=== PATIENT | female | born 1995 | race Caucasian/White ===

== ENCOUNTER 2019-03-12 09:07 | Emergency (ER) | payer BC ==
[~2019-03-12] VITALS: Ht 154.9 cm; Wt 63.0 kg
[2019-03-12] MEDS ORDERED: BENADRYL25 MG PO (09:19)
[2019-03-12] MEDS ORDERED: TRIAMCINOLONE A15 G3 TOP (09:49)
[2019-03-12] MEDS ORDERED: PREDNISONE20 MG PO (09:49)
== END 2019-03-12 10:02 | disposition home or self-care (01) ==
LOC: ED 09:07
DX: L25.9 Unspecified contact dermatitis, unspecified cause (principal); Z79.899 Other long term (current) drug therapy
CPT/HCPCS: 99283

== ENCOUNTER 2019-05-24 20:56 | Emergency (ER) | payer OTHER ==
[~2019-05-24] VITALS: Ht 154.9 cm; Wt 67.1 kg
[~2019-05-24 20:56] MED LIST: BENADRYL25 MG PO; PREDNISONE20 MG PO; TRIAMCINOLONE A15 G3 TOP
== END 2019-05-24 23:22 | disposition home or self-care (01) ==
LOC: ED 20:56
DX: R11.2 Nausea with vomiting, unspecified (principal); R19.7 Diarrhea, unspecified
CPT/HCPCS: 80053; 81001; 83690; 84703; 85025; 99284; J7030

== ENCOUNTER 2019-07-02 20:55 | Emergency (ER) | payer OTHER ==
[~2019-07-02] VITALS: Ht 154.9 cm; Wt 66.2 kg
[2019-07-02] MEDS ORDERED: PENICILLIN V P500 MG PO (22:21)
== END 2019-07-02 22:29 | disposition home or self-care (01) ==
LOC: ED 20:55
DX: K02.9 Dental caries, unspecified (principal)
CPT/HCPCS: 99282

== ENCOUNTER 2019-09-13 10:50 | Day surgery (SDC) | payer OTHER ==
[~2019-09-13] VITALS: Ht 154.9 cm; Wt 64.0 kg
[~2019-09-13 10:50] MED LIST changes: +PENICILLIN V P500 MG PO
--- NOTE | 2019-09-13 13:52 | NUR ---
09/13/19 1352 Sheets,Tamara 1343 PT ARRIVED TO PACU ON 10L VIA MASK, PT WAKES TO VERBAL STIMULI AND IS REORIENTED TO PACU, RESP EVEN AND UNLABORED. VSS. 1346 O2 REMVOED. PT REPORTS PAIN 4/10 AND TOLERBALE AT THIS TIME. 1351 PT BRACING ABD WITH PILLOW DUE TO RN EDUCATION, PT RESTING IN BED AND REPORTS PAIN IS SLIGHTLY WORSE.
--- NOTE | 2019-09-13 14:23 | NUR ---
REQUESTED CRACKERS AND GIVEN WATER. SMILING AND REPORTS PAIN /10.
[2019-09-13] MEDS ORDERED: NORCO 5-325 TA1 EACH PO (14:54)
--- NOTE | 2019-09-13 15:33 | NUR ---
1515 PT C/O PAIN 910 AFTER WAKING UP, TEARFUL. CALLED DR DO FOR MEDICINE ORDERS. DILAUDID GIVEN.
--- NOTE | 2019-09-13 15:34 | NUR ---
1534 REPORTS PAIN IMPROVED WANTS TO WAIT BEFORE ANY MORE PAIN MED.
--- NOTE | 2019-09-13 16:31 | NUR ---
DRESSED READY TO GO. CALLED SISTER WHO WENT TO [place] IS TO RETURN TO TAKE HER HOME. DCD INSTRUCTIONS GIVEN NO QUESTIONS.
--- NOTE | 2019-09-13 17:07 | NUR ---
1650 FAMILY HERE TO TAKE PT HOME. HAS DECLINED PO PAIN MEDICINE. AMB TO BR VOIDS QS. DENIES NAUSEA. HAS TAKEN WATER 300MLS AND ATE CRACKERS.
[2019-09-14] MEDS ORDERED: ZOFRAN4 MG PO (00:49)
--- NOTE | 2019-09-14 06:29 | OR ---
[facility] [address], [place] [address] Signed DATE OF OPERATION: 09/13/2019 SURGEON: Sonja Porter MD PREOPERATIVE DIAGNOSIS: Cholelithiasis with cholecystitis. POSTOPERATIVE DIAGNOSIS: Cholelithiasis with cholecystitis. PROCEDURE PERFORMED: Laparoscopic cholecystectomy with intraoperative cholangiogram. ESTIMATED BLOOD LOSS: None. INDICATIONS: Adrienne is a 23-year-old young lady, who had come to the office with her sister. I helped her sister recently with her gallbladder surgery. She was having trouble during the . Once the baby was born, we had taken her for her gallbladder surgery. Adrienne recognized her symptoms for the same as her sister's. She has been having right upper quadrant abdominal pain radiating through to her back. It has been over the last 5 months or so. She has been anorexic and losing weight. She went from 160 pounds down to 140 pounds. She said when she eats it makes it worse. She had been to her primary care provider. An ultrasound showed a 2.5 cm stone in her gallbladder. The gallbladder wall was borderline in thickness. The common bile duct was unremarkable. She had been asked to see me with respect to the above. I met with Adrienne and her sister in the office. I gave them a [employer] brochure on the gallbladder. We went through it page by page. She understands the location and function of the gallbladder. We discussed laparoscopic versus open cholecystectomy. She understands there is risk including, but not limited to bleeding, infection, scarring, change in contour of the skin, damage to bowel, damage to main bile duct, incisional hernias, and other unforeseen comorbidities. She had expressed understanding and wished to proceed. DESCRIPTION OF PROCEDURE: I met with Adrienne and her mom in our preop area. After answering the questions, we took Adrienne into the operating room. She was placed in the supine position under general endotracheal tube anesthesia. She was given preoperative antibiotics along with subcutaneous heparin. SCDs were utilized. Her preoperative beta-hCG was negative. She was then prepped and draped in the usual sterile fashion. All trocars were placed in Electronically Signed By: SONJA PORTER MD 09/14/19 0629 PATIENT NAME: ADRIENNE PERRY OPERATIVE REPORT DATE OF : [birth year] REPORT #: [id number] PHYSICIAN: SONJA PORTER MD PCP: UMBERTO BACON PA-C REPORT IS CONFIDENTIAL AND NOT TO BE RELEASED WITHOUT AUTHORIZATION [facility] [address], [place] [address] Signed her usual positions under direct visualization of camera without difficulty. The gallbladder was grasped and elevated in the right upper quadrant. We took pictures throughout for photodocumentation. The triangle of Calot was dissected free and we placed a clip across the cystic artery and it was divided. The intraoperative cholangiocatheter was inserted into the cystic duct and intraoperative cholangiogram was then performed. The intraoperative cholangiogram was unremarkable. There was no filling defects and the contrast flowed readily into the duodenum. We secured the cystic duct stump with a PDS Endoloop and a single clip was placed on the cystic duct stump to fifi its location. After this, the gallbladder was removed from the gallbladder fossa with the help of the cautery and placed into an EndoCatch bag. We used our laparoscopic suturing device to pass 0 Vicryl suture on either side of the fascia of the subxiphoid trocar site. After this, all the gas was allowed to escape and all the trocars removed along with the gallbladder. The gallbladder was opened on the back table for photodocumentation by our circulating nurse. We closed the fascia of the subxiphoid and the supraumbilical trocar site with interrupted 0 Vicryl sutures. Local anesthetic was injected in all trocar sites. Each trocar site was irrigated and suctioned out until clear. The skin and dermis of each trocar site were closed with interrupted 3-0 subcuticular Monocryl sutures. Steri-Strips were applied and over this dry gauze and tape were applied. Adrienne was then awakened from anesthesia, extubated in the OR, and taken to recovery room in stable condition. Sonja Porter MD ALB/MODL /[id number] cc: Umberto Porter MD Copies: SONJA PORTER MD ~ Electronically Signed By: SONJA PORTER MD 09/14/19 0629 PATIENT NAME: ADRIENNE PERRY OPERATIVE REPORT DATE OF : [birth year] REPORT #: [id number] PHYSICIAN: SONJA PORTER MD PCP: UMBERTO BACON PA-C REPORT IS CONFIDENTIAL AND NOT TO BE RELEASED WITHOUT AUTHORIZATION
--- NOTE | 2019-09-14 11:10 | PATH ---
[facility] [address] [facility] [place], [place] [address] Signed SPECIMEN(S): A GALLBLADDER AND CONTENTS SPECIMEN SOURCE: A. GALLBLADDER AND CONTENTS CLINICAL HISTORY: Symptomatic cholecystitis (acute and chronic) FINAL PATHOLOGIC DIAGNOSIS: Gallbladder, cholecystectomy: - Chronic cholecystitis with cholesterolosis. - Cholelithiasis. NAL:cml:C2NR MICROSCOPIC EXAMINATION: Histologic sections of all submitted blocks are examined by light microscopy. These findings, together with the gross examination, support the pathologic diagnosis. GROSS DESCRIPTION: The specimen, labeled "CP, gallbladder," is received in formalin and consists of Specimen: Previously opened gallbladder. Dimensions: 7.5 cm in length and 3.0 cm inner circumference. Serosa: Violaceous and smooth. Cystic Duct: Cannot be determined. Calculi: One yellow-ramsay gallstone within the container that measures 2.1 cm in greatest dimension. Mucosa: Dark red and velvety. Wall thickness: 0.7 cm. Lymph node: No pericystic lymph nodes are grossly identified. Additional: None. Director Private sections are submitted in cassette (A1). JS (under the direct supervision of a pathologist) The Gross Description was prepared using a voice recognition system. The report was reviewed for accuracy; however, sound-alike word errors, addition and/or deletions may occur. If there is any question about this report, please contact Client Services. PERFORMING LABORATORY: The technical component was performed by [employer], Leah [place] Josh, PATIENT NAME: ADRIENNE PERRY PATHOLOGY DATE OF : [birth year] REPORT #: [id number] PHYSICIAN: CRISTIAN TREVIZO PCP: UMBERTO BACON PA-C REPORT IS CONFIDENTIAL AND NOT TO BE RELEASED WITHOUT AUTHORIZATION [facility] [address], [place] [address] [place] [address] (Acoustic Sensor Operator: Rachana Stoeks MD; CLIA# [id number]). Professional interpretation was performed by [employer] [facility], [address] [address] (CLIA# [id number]). Diagnostician: Zakia Vicente MD Pathologist Electronically Signed 09/14/2019 Copies: ~ PATIENT NAME: ADRIENNE PERRY PATHOLOGY DATE OF : [birth year] REPORT #: [id number] PHYSICIAN: CRISTIAN TREVIZO PCP: UMBERTO BACON PA-C REPORT IS CONFIDENTIAL AND NOT TO BE RELEASED WITHOUT AUTHORIZATION
== END 2019-09-13 16:50 | disposition home or self-care (01) ==
LOC: DS 10:50
PROVIDERS: Colon & Rectal Surgery
PROC: BF13YZZ Fluoroscopy of Gallbladder and Bile Ducts using Other Contrast (ICD-10-PCS; 2019-09-13)
PROC: 0FT44ZZ Resection of Gallbladder, Percutaneous Endoscopic Approach (ICD-10-PCS; principal; 2019-09-13 11:30)
DX: K80.10 Calculus of gallbladder with chronic cholecystitis without obstruction (principal)
CPT/HCPCS: 74300; J0330; J0690; J1100; J1170; J1644; J1885; J2250; J2405; J2704; J2765; J3010; J7121; Q9967

== ENCOUNTER 2019-09-13 23:16 | Emergency (ER) | payer OTHER ==
[~2019-09-13] VITALS: Ht 154.9 cm; Wt 59.4 kg
[~2019-09-13 23:16] MED LIST changes: +NORCO 5-325 TA1 EACH PO
[2019-09-14] MEDS ORDERED: ZOFRAN4 MG PO (00:49)
== END 2019-09-14 01:31 | disposition home or self-care (01) ==
LOC: ED 23:16
DX: K91.0 Vomiting following gastrointestinal surgery (principal)
CPT/HCPCS: 80053; 83690; 85025; 96361; 96374; 96375; 99284-25; J1170; J2405; J7030

== ENCOUNTER 2019-11-14 06:06 | Emergency (ER) | payer OTHER ==
[~2019-11-14] VITALS: Ht 154.9 cm; Wt 65.8 kg
[~2019-11-14 06:06] MED LIST changes: +ZOFRAN4 MG PO
== END 2019-11-14 06:58 | disposition home or self-care (01) ==
LOC: ED 06:06
DX: S93.401A Sprain of unspecified ligament of right ankle, initial encounter (principal); W01.0XXA Fall on same level from slipping, tripping and stumbling without subsequent striking against object, initial encounter
CPT/HCPCS: 73610; 99283-25

== ENCOUNTER 2021-11-20 09:01 | Observation (INO) | payer OTHER ==
--- NOTE | 2021-11-20 10:55 | NUR ---
RT COLLECTED RAPID COVID 19, RSV, AND FLU SWAB PER DR REQUEST USING IN HOUSE LAB WITH NO COMPLICATIONS AT THIS TIME.
== END 2021-11-21 09:27 | disposition home or self-care (01) ==
LOC: FBCO 09:01 → FBC 11:45
PROVIDERS: ADMIT Obstetrics & Gynecology; ATTEND Obstetrics & Gynecology
DX: O47.03 False labor before 37 completed weeks of gestation, third trimester (principal); Z3A.32 32 weeks gestation of pregnancy; Z91.81 History of falling
CPT/HCPCS: 59025; 87502; C9803; G0378; G0463; J7121; U0003

== ENCOUNTER 2021-12-27 10:10 | Inpatient (IN) | payer OTHER ==
[~2021-12-27] VITALS: Ht 154.9 cm; Wt 85.3 kg
--- NOTE | 2021-12-29 07:56 | PR ---
[facility] [address] [facility] [place], [place] [address] Signed PP Progress Notes Datetime Report Generated by CPN: 12/29/2021 07:56 SUBJECTIVE: [id number] Pain: Within Normal Limits Nausea/Vomiting: Denies Flatus: Yes Bowel Movement: No Vital Signs: [id number] Vital Signs: Reviewed; Within Normal Limits EXAM: Ongoing Cardiovascular: Normal Respiratory: Normal Abdomen/Uterus: Normal Lochia: Normal Vulva/Perineum: Not Done Breasts: Not Done CVA Tenderness: Normal Extremities: Normal Incision: Not Applicable Progress: Normal Exam Comments: Fundus firm U-2 nontender IMPRESSION/PLAN/PROCEDURES: [id number] Impression: Normal Progression Plan: Continue Present Management Progress Notes: Pt seen and examined. Doing well. Ambulating, voiding, and tolerating full diet. Pain and lochia minimal. well. No fevers/chills. Hgb 10.1. No questions or concerns. Anticipate d/c home tomorrow. Signing Physician: Eliseo Dozier DO Copies: ~ *Electronically Signed* 12/29/21 0756 ELISEO DOZIER DO PATIENT NAME: ADRIENNE PERRY PROGRESS NOTE DATE OF : [birth year] PHYSICIAN: ELISEO DOZIER DO RPT #: [id number] REPORT IS CONFIDENTIAL AND NOT TO BE RELEASED WITHOUT AUTHORIZATION
== END 2021-12-30 11:40 | disposition home or self-care (01) | DRG 807 ==
LOC: FBCO 10:10 → FBC 18:10
PROVIDERS: ADMIT Obstetrics & Gynecology; ATTEND Obstetrics & Gynecology
PROC: 10E0XZZ Delivery of Products of Conception, External Approach (ICD-10-PCS; principal; 2021-12-27)
PROC: 0W8NXZZ Division of Female Perineum, External Approach (ICD-10-PCS; 2021-12-27)
PROC: 00HU33Z Insertion of Infusion Device into Spinal Canal, Percutaneous Approach (ICD-10-PCS; 2021-12-27)
PROC: 3E0R3BZ Introduction of Anesthetic Agent into Spinal Canal, Percutaneous Approach (ICD-10-PCS; 2021-12-27)
DX: O99.324 Drug use complicating childbirth (principal); Z37.0 Single live birth; Z3A.37 37 weeks gestation of pregnancy; Z67.40 Type O blood, Rh positive; F12.90 Cannabis use, unspecified, uncomplicated; Z20.822 Contact with and (suspected) exposure to COVID-19
CPT/HCPCS: 36415; 59025; 85025; 85027; 86850; 86900; 86901; 87502; A9270; C9803; G0463; J2001; J2405; J2590; J2795; J7121; U0003

== ENCOUNTER 2022-11-20 17:25 | Emergency (ER) | payer OTHER ==
[~2022-11-20] VITALS: Ht 152.4 cm; Wt 77.7 kg
[2022-11-20 18:39] VITALS: BP 110/71
== END 2022-11-20 18:44 | disposition home or self-care (01) ==
LOC: ED 17:25
DX: S16.1XXA Strain of muscle, fascia and tendon at neck level, initial encounter (principal); S39.012A Strain of muscle, fascia and tendon of lower back, initial encounter; V44.6XXA Car passenger injured in collision with heavy transport vehicle or bus in traffic accident, initial encounter; Z87.891 Personal history of nicotine dependence
CPT/HCPCS: 99283

== ENCOUNTER 2024-06-16 07:13 | Emergency (ER) | payer OTHER ==
[~2024-06-16] VITALS: Ht 152.4 cm; Wt 82.0 kg
[2024-06-16 08:27] LABS: BASOPHILS 0.4 % (0-2); EOSINOPHILS 0.3 % (0-6); HEMATOCRIT 42.2 % (35.0-50.0); LYMPHOCYTES 30.2 % (24-44); MCH 30.8 (27-36); MCV 93.1 fl (81-99); MONOCYTES 6.3 % (0-12); NEUTROPHILS 62.8 % (39-80); PLATELET COUNT 222 K/uL (140-440); RBC 4.54 M/ul (4.3-5.7); RDW 13.4 (10.5-15.0)
[2024-06-16 08:42] LABS: BILIRUBIN, URINE NEGATIVE (negative); BLOOD/HGB, URINE SMALL (Negative); KETONE, URINE NEGATIVE (Negative); LEUK ESTERASE, URINE NEGATIVE (negative); NITRITE, URINE NEGATIVE (negative)
[2024-06-16 08:48] LABS: BACTERIA, URINE NONE SEEN /hpf (negative); CASTS, URINE NONE SEEN \\lpf; COLLECTION TYPE, URINE CLEAN CATCH; CRYSTALS, URINE NONE SEEN (0-1+); EPITHELIAL CELLS, URINE 0 /lpf (0-1+); REFLEX CULTURE, URINE No (No); WHITE BLOOD CELLS, URINE 0-1 /HPF (0-5)
[2024-06-16 09:02] LABS: ALBUMIN 3.4 g/dL (3.4-5.0); ALBUMIN/GLOBULIN RATIO 0.89 (1.1-2.4); ANION GAP 14.7 (7-21); BILIRUBIN, TOTAL 0.1 ng/dL (0.2-1.0); BUN/CREATININE RATIO 15.38 (6.0-28.6); CALCIUM 8.6 mg/dL (8.5-10.1); CREATININE, SERUM 0.65 mg/dL (0.55-1.02); POTASSIUM 3.7 mmol/L (3.5-5.1); PROTEIN, TOTAL 7.2 g/dL (6.4-8.2)
[2024-06-16 09:09] LABS: ABO O; RH POSITIVE
[2024-06-16 10:15] VITALS: BP 108/54
== END 2024-06-16 10:17 | disposition home or self-care (01) ==
LOC: ED 07:13
PROVIDERS: Emergency Medicine
DX: O20.9 Hemorrhage in early pregnancy, unspecified (principal); Z3A.01 Less than 8 weeks gestation of pregnancy; Z87.891 Personal history of nicotine dependence
CPT/HCPCS: 36415; 76801; 76817; 80053; 81001; 84702; 85025; 86900; 86901; 99284-25